=== PATIENT | male | born 1960 | race Caucasian/White ===

== ENCOUNTER → 2017-01-26 | Outpatient (CLI) | payer BC ==
[2017-01-26 08:35] LABS: CHLORIDE,CL 108 mmol/L (98-110); SODIUM,NA 141 mmol/L (136-146)
== END ==
LOC: MW.CHFP 07:38
PROVIDERS: ATTEND Nurse Practitioner Family
DX: E11.9 Type 2 diabetes mellitus without complications (principal)
CPT/HCPCS: 36415; 80053; 80061; 82044; 83036

== ENCOUNTER 2021-11-27 06:24 | Day surgery (SDC) | payer BC ==
[~2021-11-27 06:24] MED LIST: Lactated Ringers 1,000 ML IV SCH
[2021-11-27] MEDS ORDERED: fentaNYL 100 MCG/2 ML SDV ONE (07:28)
[2021-11-27] MEDS ORDERED: Propofol 200 MG/20 ML SDV ONE ×2 (07:28→08:59)
[2021-11-27] MEDS ORDERED: Lidocaine 2% 5 ML SDV ONE (07:28)
[2021-11-27 09:42] VITALS: PULSE 69
[2021-11-27 10:39] VITALS: BP 110/64
== END 2021-11-27 10:02 | disposition home or self-care (01) ==
LOC: MW.SDS 06:24
PROVIDERS: ATTEND Surgery
DX: D64.9 Anemia, unspecified (principal); K64.8 Other hemorrhoids; K31.7 Polyp of stomach and duodenum; K29.50 Unspecified chronic gastritis without bleeding; K31.89 Other diseases of stomach and duodenum; I78.1 Nevus, non-neoplastic; E11.9 Type 2 diabetes mellitus without complications; E78.00 Pure hypercholesterolemia, unspecified; I10 Essential (primary) hypertension; Z87.891 Personal history of nicotine dependence; Z79.899 Other long term (current) drug therapy; Z79.84 Long term (current) use of oral hypoglycemic drugs
CPT/HCPCS: 43239; 45378; 82947; J2704; J3010; J7120; 00813

== ENCOUNTER 2021-12-18 20:17 | Emergency (ER) | payer BC ==
[2021-12-18 21:52] LABS: BLOOD UREA NITROGEN,BUN 21 mg/dL (7.0-18.0); CARBON DIOXIDE,CO2 26.4 mmol/L (21.0-32.0); CHLORIDE,CL 102 mmol/L (98-107); GLUCOSE RANDOM 99 mg/dL (74-106); POTASSIUM,K 3.7 mmol/L (3.5-5.1); SODIUM,NA 137 mmol/L (136-148)
[2021-12-19 00:21] VITALS: BP 116/68; PULSE 85
== END 2021-12-19 00:25 | disposition home or self-care (01) ==
LOC: MW.ED 20:17
DX: D64.9 Anemia, unspecified (principal); E11.9 Type 2 diabetes mellitus without complications; K21.9 Gastro-esophageal reflux disease without esophagitis; I10 Essential (primary) hypertension; Z79.899 Other long term (current) drug therapy
CPT/HCPCS: 36415; 71045; 71045-26; 80053; 83735; 84484; 85025; 85610; 85730; 93005; 99284-25

== ENCOUNTER 2022-02-03 11:18 | Observation (INO) | payer BC ==
[2022-02-03] MEDS ORDERED: Sodium Chloride 0.9% 10 ML Syringe FLUSH PRN ×2 (11:48→13:40)
[2022-02-03] MEDS ORDERED: Sodium Chloride 0.9% 2.5 ML Syringe FLUSH PRN ×2 (11:48→13:40)
[2022-02-03 12:59] LABS: BLOOD UREA NITROGEN,BUN 20 mg/dL (7.0-18.0); CARBON DIOXIDE,CO2 26.1 mmol/L (21.0-32.0); CHLORIDE,CL 103 mmol/L (98-107); GLUCOSE RANDOM 98 mg/dL (74-106); POTASSIUM,K 4.2 mmol/L (3.5-5.1); SODIUM,NA 137 mmol/L (136-148)
[2022-02-03] MEDS ORDERED: Acetaminophen 325 MG Tab PO PRN (13:40)
[2022-02-03] MEDS ORDERED: Ondansetron 4 MG Tab.DIS PO PRN (13:40)
[2022-02-03] MEDS ORDERED: Glucagon,Human Recombinant 1 MG Vial IM PRN (13:42)
[2022-02-03] MEDS ORDERED: 50% Dextrose in Water 50 ML Syringe IVPUSH PRN (13:42)
[2022-02-03] MEDS: Insulin Aspart 100 Units/ML 3 ML Pen SUBCUT SCH (17:59)
[2022-02-03] MEDS: metFORMIN 500 MG Tab PO SCH (20:37)
[2022-02-04 06:13] LABS: BLOOD UREA NITROGEN,BUN 18 mg/dL (7.0-18.0); CARBON DIOXIDE,CO2 27.8 mmol/L (21.0-32.0); CHLORIDE,CL 105 mmol/L (98-107); GLUCOSE RANDOM 106 mg/dL (74-106); POTASSIUM,K 4.1 mmol/L (3.5-5.1); SODIUM,NA 139 mmol/L (136-148)
[2022-02-04] MEDS: Insulin Aspart 100 Units/ML 3 ML Pen SUBCUT SCH ×2 (06:43→12:57)
[2022-02-04] MEDS: metFORMIN 500 MG Tab PO SCH (07:53)
[2022-02-04] MEDS ORDERED: Non-Formulary Medication 1 Each (Empagliflozin [Jardiance] 10 MG Tablet) PO SCH (09:00)
[2022-02-04 15:38] VITALS: BP 117/58; PULSE 85
== END 2022-02-04 15:45 | disposition home or self-care (01) ==
LOC: MW.ED 11:18 → MW.MS 12:56
PROVIDERS: ADMIT Internal Medicine; ATTEND Internal Medicine
DX: D64.9 Anemia, unspecified (principal); E11.9 Type 2 diabetes mellitus without complications; E78.00 Pure hypercholesterolemia, unspecified; I10 Essential (primary) hypertension; Z98.890 Other specified postprocedural states; Z79.84 Long term (current) use of oral hypoglycemic drugs; Z79.899 Other long term (current) drug therapy; Z20.822 Contact with and (suspected) exposure to COVID-19
CPT/HCPCS: 36415; 36430; 80048; 80053; 82947; 83735; 84443; 84484; 85014; 85018; 85025; 86850; 86900; 86901; 86920; 87635; 93005; 99285; A9270; G0378; J3490; P9016; 99217; 99219; U0002

== ENCOUNTER 2023-08-09 18:50 | Emergency (ER) | payer OTHER, BC ==
[2023-08-09] MEDS ORDERED: Sodium Chloride 0.9% 1,000 ML IV ONE (19:00)
[2023-08-09] MEDS ORDERED: Morphine 4 MG/ML Syringe IVPUSH ONE (19:01)
[2023-08-09 19:07] LABS: BASOPHILS ABSOLUTE AUTO 0.02 K/uL (0.00-0.20); BASOPHILS PERCENT AUTO 0.2 % (0.0-1.0); EOSINOPHILS ABSOLUTE AUTO 0.04 K/uL (0.00-0.45); EOSINOPHILS PERCENT AUTO 0.4 % (0.0-6.0); HEMATOCRIT 33.9 % (42.0-52.0); HEMOGLOBIN 11.7 g/dL (14.0-18.0); IMMATURE GRAN ABSOLUTE AUTO 0.07 K/uL (0.00-0.05); IMMATURE GRAN PERCENT AUTO 0.7 % (0.0-0.4); LYMPHOCYTES ABSOLUTE AUTO 2.32 K/uL (1.00-4.80); LYMPHOCYTES PERCENT AUTO 24.6 % (24.0-44.0); MEAN CORPUSCULAR HEMOGLOBIN 33.7 pg (28.0-32.0); MEAN CORPUSCULAR HGB CONC 34.5 g/dL (32.0-36.0); MEAN CORPUSCULAR VOLUME 97.7 fL (83.0-99.0); MEAN PLATELET VOLUME 9.9 fL (9.4-12.4); MONOCYTES ABSOLUTE AUTO 0.49 K/uL (0.00-0.80); MONOCYTES PERCENT AUTO 5.2 % (0.0-8.0); NEUTROPHILS PERCENT AUTO 68.9 % (41.0-71.0); PLATELET COUNT,PLT 209 K/uL (150-400); RED BLOOD CELL COUNT 3.47 M/uL (4.52-5.90); WHITE BLOOD CELL COUNT,WBC 9.44 K/uL (3.9-11.3)
[2023-08-09] MEDS ORDERED: Iopamidol 755 MG/ML 500 ML Multipack Bottle IVPUSH ONE (19:17)
[2023-08-09 19:19] LABS: INR 1.12 (0.86-1.11); PTT,PARTIAL THROMBOPLSTIN TIME 24.3 SEC (23.9-30.7)
[2023-08-09 19:24] LABS: A/G RATIO 1.3 (0.9-1.6); ALANINE AMINOTRANSFERASE,ALT 44 IU/L (14-63); ALBUMIN 3.7 g/dL (3.4-5.0); ALKALINE PHOSPHATASE 81 U/L (46-116); ASPARTATE AMNIOTRANSFERASE,AST 40 IU/L (15-37); BILIRUBIN TOTAL 1.2 mg/dL (0.2-1.0); BLOOD UREA NITROGEN,BUN 16 mg/dL (7.0-18.0); CALCIUM 8.6 mg/dL (8.5-10.1); CARBON DIOXIDE,CO2 26.1 mmol/L (21.0-32.0); CHLORIDE,CL 103 mmol/L (98-107); CREATININE 1.2 mg/dL (0.8-1.3); EST CRCL DRUG DOSING (CG) 74.33 mL/min; ESTIMATED GFR 68 mL/min (>60); ETHANOL BLOOD MEDICAL <3 mg/dL; GLUCOSE RANDOM 126 mg/dL (74-106); LIPASE 25 U/L (16-77); PROTEIN TOTAL,TP 6.6 g/dL (6.4-8.2); SODIUM,NA 138 mmol/L (136-148)
[2023-08-09] MEDS ORDERED: Acetaminophen/oxyCODONE 325-5 MG Tab PO ONE (21:48)
[2023-08-09 23:59] VITALS: BP 110/70; PULSE 88
== END 2023-08-09 22:05 | disposition home or self-care (01) ==
LOC: MW.ED 18:50 → MERGE 18:50 → MW.ED 22:05
DX: S22.42XA Multiple fractures of ribs, left side, initial encounter for closed fracture (principal); S32.592A Other specified fracture of left pubis, initial encounter for closed fracture; S32.402A Unspecified fracture of left acetabulum, initial encounter for closed fracture; S60.511A Abrasion of right hand, initial encounter; V69.49XA Driver of heavy transport vehicle injured in collision with other motor vehicles in traffic accident, initial encounter; Y92.410 Unspecified street and highway as the place of occurrence of the external cause
CPT/HCPCS: 36415; 70450; 71260; 72125; 72128; 72131; 74177; 80053; 80307; 83690; 83735; 84484; 85025; 85610; 85730; 96374; 99284; A9270; J2270; J7030; Q9967